=== PATIENT | male | born 1970 | race Caucasian/White ===

== ENCOUNTER 2021-11-14 10:09 | Observation (INO) ==
[2021-11-14 11:15] LABS: Basophils # 0.1 K/mcL (0.0-0.2); Basophils % 0.6 %; Eosinophils # 0.1 K/mcL (0.0-0.6); Eosinophils % 0.5 %; Hematocrit 42.6 % (37.5-50.1); Hemoglobin 14.7 g/dL (12.9-16.9); Immature Granulocytes % 0.8 % (0-4); Lymphocytes # 1.3 K/mcL (0.6-4.6); Lymphocytes % 11.6 %; Mean Corpuscular HGB Conc 34.5 g/dL (31.6-35.5); Mean Corpuscular Hemoglobin 29.6 pg (28.0-33.3); Mean Corpuscular Volume 85.7 fL (83.0-100.0); Mean Platelet Volume 8.7 fL (9.4-12.4); Monocytes # 0.7 K/mcL (0.0-1.3); Platelet Count 305 K/mcL (140-400); Red Blood Count 4.97 M/mcL (4.19-5.50); Red Cell Distribution Width 12.4 % (11.5-14.5); Segmented Neutrophils % 80.5 %; White Blood Count 11.2 K/mcL (4.3-11.1)
[2021-11-14 11:36] LABS: BUN/Creatinine Ratio 16 (6-26); Blood Urea Nitrogen 13 mg/dL (6-20); Carbon Dioxide 24 mEq/L (23-29); Chloride 97 mEq/L (98-107); Glucose 192 mg/dL (70-105); Osmolality,Calculated 285 (280-300); Potassium 3.2 mEq/L (3.5-5.1); Sodium 135 mEq/L (136-145); eGFR For African Americans > 60 (> 60); eGFR For Non-African Americans > 60 (> 60)
[2021-11-14] MEDS ORDERED: Potassium Effervescent 25 MEQ TABLET.EFF PO ONE (13:17)
[2021-11-14 13:35] LABS: VBG HCO3 24 mEq/L (21-27); VBG PCO2 33 mmHg (41-51); VBG PH 7.46 pH Units (7.32-7.42); VBG PO2 80 mmHg (25-50)
[2021-11-14] MEDS ORDERED: D5% in 0.45% NACL w KCl 20 MEQ/1,000 ML MLS IVC SCH ×3 (14:00→21:00)
[2021-11-14] MEDS ORDERED: *HR* Dextrose 50 % in Water (Syg) 50 ML SYRINGE IVP PRN ×2 (14:02→14:47)
[2021-11-14] MEDS ORDERED: Ondansetron 4 MG/2 ML VIAL IVP PRN (14:45)
[2021-11-14] MEDS ORDERED: Naloxone 0.4 MG/ML INJ IVP PRN (14:45)
[2021-11-14] MEDS ORDERED: Insulin Regular, Human 100 UNIT/ML IV PRN (14:47)
[2021-11-14 18:03] LABS: BUN/Creatinine Ratio 22 (6-26); Blood Urea Nitrogen 14 mg/dL (6-20); Carbon Dioxide 28 mEq/L (23-29); Chloride 102 mEq/L (98-107); Glucose 81 mg/dL (70-105); Osmolality,Calculated 284 (280-300); Potassium 3.5 mEq/L (3.5-5.1); Sodium 137 mEq/L (136-145); eGFR For African Americans > 60 (> 60); eGFR For Non-African Americans > 60 (> 60)
[2021-11-14 18:06] LABS: Troponin I < 0.03 ng/mL (< 0.04)
[2021-11-14 21:06] LABS: BUN/Creatinine Ratio 17 (6-26); Blood Urea Nitrogen 12 mg/dL (6-20); Calcium 8.5 mg/dL (8.6-10.3); Carbon Dioxide 25 mEq/L (23-29); Chloride 100 mEq/L (98-107); Glucose 197 mg/dL (70-105); Osmolality,Calculated 285 (280-300); Potassium 3.7 mEq/L (3.5-5.1); Sodium 135 mEq/L (136-145); eGFR For African Americans > 60 (> 60); eGFR For Non-African Americans > 60 (> 60)
[2021-11-15 01:25] LABS: Estimated Average Glucose 298 mg/dl
[2021-11-15 01:28] LABS: Hematocrit 37.6 % (37.5-50.1); Mean Corpuscular HGB Conc 34.6 g/dL (31.6-35.5); Mean Corpuscular Hemoglobin 29.7 pg (28.0-33.3); Mean Corpuscular Volume 85.8 fL (83.0-100.0); Mean Platelet Volume 9.3 fL (9.4-12.4); Platelet Count 264 K/mcL (140-400); Red Blood Count 4.38 M/mcL (4.19-5.50); Red Cell Distribution Width 12.4 % (11.5-14.5)
[2021-11-15 01:40] LABS: BUN/Creatinine Ratio 16 (6-26); Blood Urea Nitrogen 12 mg/dL (6-20); Calcium 8.2 mg/dL (8.6-10.3); Carbon Dioxide 27 mEq/L (23-29); Chloride 101 mEq/L (98-107); Glucose 161 mg/dL (70-105); Osmolality,Calculated 285 (280-300); Potassium 3.7 mEq/L (3.5-5.1); Sodium 136 mEq/L (136-145); eGFR For African Americans > 60 (> 60); eGFR For Non-African Americans > 60 (> 60)
[2021-11-15] MEDS: Insulin LISPRO 300 UNITS/3 ML VIAL SUBQ SCH ×2 (08:46→12:02)
[2021-11-15] MEDS ORDERED: Pantoprazole 40 MG VIAL IVP SCH (12:15)
[2021-11-15 13:58] VITALS: BP 103/73; PULSE 92; TEMP 98.8; O2SAT 93
[2021-11-15] MEDS ORDERED: Ringers Solution, Lactated 1,000 ML IVC SCH (14:00)
[2021-11-15] MEDS ORDERED: Lidocaine -MPF 2% 5 ML VIAL ONE (14:28)
[2021-11-15] MEDS ORDERED: *HR* Propofol 200 MG/20 ML VIAL IVP ONE (14:28)
== END 2021-11-15 16:09 | disposition home or self-care (01) ==
LOC: EMEROOARM 10:09 → 2NNU 10:09
PROVIDERS: ADMIT Internal Medicine; ATTEND Internal Medicine
PROC: ENDOEBX (2021-11-15 14:20)